=== PATIENT | male | born 1975 | race Caucasian/White ===

== ENCOUNTER → 2016-08-10 | Outpatient (CLI) | payer BC ==
[~2016-08-10] MED LIST: CYAN500T13 PO; INDO50CA97 PO; LISI-725 PO; MULT-506 PO; SERT1TAB71 PO
[2016-08-10 12:59] LABS: HEMATOCRIT 41.9 % (42-52); MEAN CELL VOLUME 83.5 fL (80-100); MEAN CORPUSCULAR HEMOGLOBIN 29.9 pg (25-34); MEAN CORPUSCULAR HGB CONC 35.8 g/dl (32-36); MEAN PLATELET VOLUME 9.4 fL (7.4-10.4); PLATELET COUNT 256 K/uL (130-400); RED BLOOD COUNT 5.02 M/uL (4.7-6.1); WHITE BLOOD COUNT 11.21 K/uL (4.8-10.8)
[2016-08-10 13:33] LABS: ALB/GLOB RATIO 0.9 (0.9-2); ALKALINE PHOSPHATASE 73 U/L (45-117); ALT/SGPT 47 U/L (12-78); AST/SGOT 26 U/L (15-37); BLOOD UREA NITROGEN 15 mg/dl (7-18); BUN/CREATININE RATIO 16.9 (10-20); CALCIUM 9.1 mg/dl (8.5-10.1); CARBON DIOXIDE 25 mmol/L (21-32); CHLORIDE 98 mmol/L (98-107); CHOLESTEROL 233 mg/dl (0-200); CHOLESTEROL/HDL RATIO 8.6; CREATININE 0.91 mg/dl (0.60-1.40); GLUCOSE 248 mg/dl (70-99); HDL CHOLESTEROL 27 mg/dl; POTASSIUM 4.2 mmol/L (3.5-5.1); SODIUM 133 mmol/L (136-145); TRIGLYCERIDES 1754 mg/dl (0-150)
[2016-08-10 16:26] LABS: ESTIMATED AVERAGE GLUCOSE 220 mg/dl; HA1C FLAG Normal (Normal)
== END | disposition home or self-care (01) ==
LOC: C.LABBFT 10:20
PROVIDERS: ATTEND Internal Medicine Geriatric Medicine
DX: Z00.00 Encounter for general adult medical examination without abnormal findings (principal); E11.9 Type 2 diabetes mellitus without complications